=== PATIENT | female | born 1950 | race American Indian/Alaskan Native ===

== ENCOUNTER 2019-08-06 15:16 | Inpatient (IN) | payer MEDICARE, MEDICAID ==
--- NOTE | 2019-08-06 18:46 | History and Physical Report ---
History of Present Illness Date of examination: 08/06/19 Date of admission: 08/06/19 17:24 Chief complaint: Decreased responsiveness and urinary tract infection History of present illness: 68 yo female admitted to the [facility] psych unit and being treated for c atatonic schizophrenia. Patient has hyperlipidemia and schizophrenia. Patient continued to be catatonic since 07/28/2019. Patient with decreased responsiveness. Afebrile. Dysuria present. No fever. Past History Past Medical History: hyperlipidemia, other (hypercholesterolaemia,tachycardia, bipolar, anxiety, depression) Past Surgical History: cholecystectomy Social history: full code Family history: other (Unknown) Medications and Allergies Allergies Allergy/AdvReac Type Severity Reaction Status Date / Time acetaminophen [From Tylenol] Allergy Hives Verified 07/28/19 03:01 Home Medications Medication Instructions Recorded Confirmed Last Taken Type Propranolol [Inderal] 10 mg PO DAILY 07/28/19 07/28/19 Unknown History Simvastatin 20 mg PO HS 07/28/19 07/28/19 Unknown History Valproic Acid [DepaKENE] 250 mg PO HS 07/28/19 07/28/19 Unknown History chlorproMAZINE [Thorazine] 50 mg PO DAILY 07/28/19 07/28/19 Unknown History clonazePAM [Klonopin] 1 mg PO HS 07/28/19 07/28/19 Unknown History Active Meds: Active Medications Atorvastatin Calcium (Atorvastatin) 10 mg PO QHS [facility]AY Clonazepam (Klonopin) 1 mg PO QHS [facility] Lorazepam (Ativan) 2 mg IM Q6H [facility] Last Admin: 07/28/19 14:45 Dose: 2 mg Documented by: Propranolol HCl (Inderal) 10 mg PO DAILY [facility] Last Admin: 07/28/19 09:38 Dose: Not Given Documented by: Risperidone (Risperdal) 1 mg PO BID [facility] Last Admin: 07/28/19 09:37 Dose: Not Given Documented by: Valproic Acid (Depakene) 250 mg PO [facility] Review of Systems ROS unobtainable: due to mental status Medications and Allergies Allergies Allergy/AdvReac Type Severity Reaction Status Date / Time acetaminophen [From Tylenol] Allergy Hives Verified 07/28/19 03:01 Home Medications Medication Instructions Recorded Confirmed Last Taken Type Propranolol [Inderal] 10 mg PO DAILY 07/28/19 08/06/19 08/06/19 10:00 History Simvastatin 20 mg PO HS 07/28/19 08/06/19 08/05/19 22:00 History ARIPiprazole [Abilify TAB] 10 mg PO QDAY #30 tablet 08/04/19 08/06/19 08/06/19 10:00 Rx LORazepam [Ativan] 1 mg PO QID #60 tablet 08/04/19 08/06/19 Unknown Rx chlorproMAZINE [Thorazine] 50 mg PO HS #30 tablet 08/04/19 08/06/19 08/05/19 22:00 Rx LORazepam [Ativan INJ] 2 mg IM BID #14 vial 08/06/19 08/06/19 08/06/19 10:00 Rx Sertraline [Zoloft] 100 mg PO QDAY #60 tablet 08/06/19 08/06/19 08/06/19 09:00 Rx Exam - Constitutional General appearance: Present: no acute distress, well-nourished - EENT Eyes: Present: PERRL ENT: hearing intact, clear oral mucosa - Neck Neck: Present: supple, normal ROM - Respiratory Respiratory effort: normal Respiratory: bilateral: CTA - Cardiovascular Heart rate: 76 Rhythm: regular (76) Heart Sounds: Present: S1 & S2. Absent: rub, click - Extremities Extremities: no ischemia, pulses intact, pulses symmetrical, No edema Peripheral Pulses: within normal limits - Abdominal General gastrointestinal: Present: soft, non-tender, non-distended, normal bowel sounds Female genitourinary: Present: normal - Rectal Rectal Exam: deferred - Integumentary Integumentary: Present: clear, warm, dry - Musculoskeletal Musculoskeletal: generalized weakness - Psychiatric Psychiatric: intact judgment & insight, depressed, other (catatonic state, unresponsive) - Neurologic Neurologic: CNII-XII intact, moves all extremities - Allied Health Allied health notes reviewed: nursing, case management Results - Labs Labs: Labs on 08/06/2019 from [facility] psych admission Sodium 140 Potassium 3.5 Chloride 101.3 Carbon dioxide 22 Anion gap 20 BUN 25 Creatinine 0.6 estimated GFR more than 60 BUN/creatinine ratio 116 Hemoglobin A1c 5.6 Calcium 9.2 AST 21 ALT 30 Alkaline phosphatase 65 Total protein 6.5 Albumin 3.4 /Globulin ratio 1.1 Triglycerides 155 Cholesterol 149 LDL cholesterol 98 HDL 30 Cholesterol/HDL ratio 4.96 Urine WBC more than 182 Valproic acid 5.0 Assessment and Plan Advance Directives: Yes (full code) Plan of care discussed with patient/family: Yes - Patient Problems (1) Acute encephalopathy Current Visit: Yes Status: Acute Plan to address problem: Secondary to UTI and schizophrenia IV fluids initiated IV ceftriaxone initiated pending urine cultures Psychiatry consulted (2) UTI (urinary tract infection) Current Visit: Yes Status: Acute Qualifiers: Urinary tract infection type: acute cystitis Plan to address problem: IV ceftriaxone initiated (3) Hypokalemia Current Visit: Yes Status: Acute Plan to address problem: Supplemented (4) DVT prophylaxis Current Visit: Yes Status: Acute Plan to address problem: On Lovenox and GI prophylaxis
[2019-08-06] MEDS ORDERED: ACETAMINOPHEN 325 MG TAB PO PRN (19:49)
[2019-08-06] MEDS ORDERED: ONDANSETRON 4 MG/2 ML INJ IV PRN (19:49)
[2019-08-06] MEDS ORDERED: HYDROmorphone 1 MG/1 ML INJ IV PRN (19:50)
[2019-08-06] MEDS ORDERED: SERTRALINE 50 MG TAB PO SCH (20:00)
[2019-08-06] MEDS ORDERED: POTASSIUM CHLORIDE ER 20 MEQ TAB PO ONE (20:33)
[2019-08-06] MEDS: SODIUM CHLORIDE 0.9% 1000 ML 1,000 ML IV SCH (21:00)
[2019-08-06] MEDS: PROPRANOLOL 10 MG TAB PO SCH (21:05)
[2019-08-06] MEDS: cefTRIAXone/NS 2 GM/100 ML 2 GM/100 ML BAG IV SCH (21:05)
[2019-08-06] MEDS: ENOXAPARIN 40 MG/0.4 ML INJ SUB-Q SCH (21:19)
[2019-08-06] MEDS: PRAVASTATIN 40 MG TAB PO SCH (21:19)
[2019-08-06] MEDS: FAMOTIDINE 20 MG TAB PO SCH (21:19)
[2019-08-06] MEDS: chlorproMAZINE 25 MG TAB PO SCH (21:20)
[2019-08-06 21:34] LABS: Basophils # (Auto) 0.1 K/mm3 (0.0-0.1); Basophils % (Auto) 0.6 % (0.0-1.8); Eosinophils # (Auto) 0.2 K/mm3 (0.0-0.4); Hemoglobin 14.2 gm/dl (10.1-14.3); Lymphocytes # (Auto) 3.9 K/mm3 (1.2-5.4); Lymphocytes % (Auto) 25.1 % (13.4-35.0); Mean Corpuscular HGB Conc 34 % (30-34); Mean Corpuscular Volume 90 fl (79-97); Monocytes # (Auto) 1.5 K/mm3 (0.0-0.8); Monocytes % (Auto) 9.8 % (0.0-7.3); Platelet Count 237 K/mm3 (140-440); Red Blood Count 4.67 M/mm3 (3.65-5.03); Red Cell Distribution Width 13.5 % (13.2-15.2)
[2019-08-06 21:48] LABS: Alanine Aminotransferase 28 units/L (7-56); Albumin 3.6 g/dL (3.9-5); BUN/Creatinine Ratio 28; Blood Urea Nitrogen 17 mg/dL (7-17); Calcium 9.6 mg/dL (8.4-10.2); Hemolysis Index 11
[2019-08-06] MEDS: LORazepam 2 MG/ML VIAL IV SCH (21:54)
[2019-08-06] MEDS ORDERED: LORazepam 2 MG/ML VIAL IM SCH (22:00)
[2019-08-06] MEDS ORDERED: LORazepam 1 MG TAB PO SCH (22:00)
[2019-08-06] MEDS ORDERED: NON-FORMULARY EACH (Simvastatin 20 MG) PO SCH (22:00)
[2019-08-06 23:05] LABS: Bacteria,Urine 2+ /HPF (Negative); Bilirubin,Urine NEG (Negative); Blood,Urine LG (Negative); Color,Urine Yellow (Yellow); Mucus,Urine FEW /HPF; Urobilinogen,Urine < 2.0 mg/dL (<2.0)
[2019-08-06 23:15] LABS: WBC,Urine > 182.0 /HPF (0.0-6.0)
[2019-08-07] MEDS: LORazepam 2 MG/ML VIAL IV SCH (04:23)
[2019-08-07] MEDS: SODIUM CHLORIDE 0.9% 1000 ML 1,000 ML IV SCH (06:19)
[2019-08-07] MEDS: ARIPiprazole 10 MG TAB PO SCH ×2 (09:45→15:03)
[2019-08-07] MEDS: FAMOTIDINE 20 MG TAB PO SCH ×2 (09:45→21:42)
[2019-08-07] MEDS: PROPRANOLOL 10 MG TAB PO SCH (09:45)
[2019-08-07] MEDS: cefTRIAXone/NS 2 GM/100 ML 2 GM/100 ML BAG IV SCH (09:46)
[2019-08-07] MEDS: SERTRALINE 100 MG TAB PO SCH (09:47)
[2019-08-07] MEDS ORDERED: FLU VACC QUAD 2019-20 (3 YR UP)/PF 60 MCG/0.5 ML SYRINGE IM ONE (12:00)
[2019-08-07] MEDS ORDERED: LORazepam 2 MG/ML VIAL IV PRN ×2 (12:36→13:19)
--- NOTE | 2019-08-07 13:20 | Progress Note ---
Assessment and Plan / Acute encephalopathy Secondary to UTI and catatonic schizophrenia IV fluids initiated IV ceftriaxone initiated pending urine cultures Psychiatry consulted, cont her psych meds and ativan at bedside / UTI (urinary tract infection) with SIRS IV ceftriaxone initiated - follow cx / Hypokalemia Supplemented / DVT prophylaxis On Lovenox and GI prophylaxis Subjective Date of service: 08/07/19 Interval history: Patient seen and examined Appears catatonic - does not speak or open her eyes Discussed with family at bedside Objective - Constitutional Vitals: Vital Signs - 12hr 08/07/19 08/07/19 08/07/19 01:48 07:50 08:43 Temperature 98.6 F 98.7 F Pulse Rate 96 H 91 H 90 Pulse Rate [ Right Radial] Respiratory 24 18 48 H Rate Blood Pressure 137/66 119/63 114/62 O2 Sat by Pulse 96 94 98 Oximetry 08/07/19 08/07/19 08/07/19 09:44 09:45 10:00 Temperature Pulse Rate 87 Pulse Rate [ 84 Right Radial] Respiratory Rate Blood Pressure 114/62 O2 Sat by Pulse 93 98 Oximetry General appearance: Present: obese, other (appears asleep w/o any discomfort, does not open eyes, ) - EENT Eyes: no scleral icterus ENT: clear oral mucosa, dentition normal Ears: bilateral: normal - Neck Neck: supple, no masses or JVD - Respiratory Respiratory effort: normal Respiratory: bilateral: CTA - Breasts Breasts: normal - Cardiovascular Rhythm: regular Heart Sounds: Present: S1 & S2. Absent: gallop, rub Extremities: pulses intact, No edema, normal color, Full ROM - Gastrointestinal General gastrointestinal: Present: soft, non-tender, non-distended, normal bowel sounds - Integumentary Integumentary: clear, warm, dry - Musculoskeletal Musculoskeletal: generalized weakness - Neurologic Neurologic: other (unable to reflex) - Psychiatric Psychiatric: other (non communicative) - Labs CBC & Chem 7: 08/06/19 20:28 08/08/19 03:31 Labs: Abnormal lab results 08/06/19 08/06/19 08/06/19 Range/Units 20:28 20:28 22:00 WBC 15.6 H (4.5-11.0) K/mm3 Ponce % (Auto) 9.8 H (0.0-7.3) % Ponce # 1.5 H (0.0-0.8) K/mm3 Seg Neutrophils # 9.9 H (1.8-7.7) K/mm3 Potassium 3.1 L (3.6-5.0) mmol/L Creatinine 0.6 L (0.7-1.2) mg/dL Glucose 118 H (65-100) mg/dL Albumin 3.6 L (3.9-5) g/dL Urine WBC (Auto) > 182.0 H (0.0-6.0) /HPF
[2019-08-07] MEDS: D5W/0.45% NACL/KCL 20 MEQ 20 MEQ/1,000 ML BAG IV SCH (14:58)
[2019-08-07] MEDS ORDERED: SERTRALINE 100 MG TAB PO ONE (15:30)
[2019-08-07] MEDS: chlorproMAZINE 25 MG TAB PO SCH (21:41)
[2019-08-07] MEDS: LORazepam 2 MG TAB PO SCH (21:41)
[2019-08-07] MEDS: ENOXAPARIN 40 MG/0.4 ML INJ SUB-Q SCH (21:42)
[2019-08-07] MEDS: PRAVASTATIN 40 MG TAB PO SCH (21:42)
[2019-08-07] MEDS ORDERED: LORazepam 2 MG/ML VIAL IM SCH (22:00)
[2019-08-08] MEDS: D5W/0.45% NACL/KCL 20 MEQ 20 MEQ/1,000 ML BAG IV SCH ×2 (04:02→17:20)
[2019-08-08 05:10] LABS: BUN/Creatinine Ratio 17; Blood Urea Nitrogen 10 mg/dL (7-17); Calcium 8.5 mg/dL (8.4-10.2); Hemolysis Index 8
[2019-08-08] MEDS: PROPRANOLOL 10 MG TAB PO SCH (09:28)
[2019-08-08] MEDS: cefTRIAXone/NS 2 GM/100 ML 2 GM/100 ML BAG IV SCH (09:28)
[2019-08-08] MEDS: FAMOTIDINE 20 MG TAB PO SCH ×2 (09:29→21:09)
[2019-08-08] MEDS: ARIPiprazole 10 MG TAB PO SCH (09:29)
[2019-08-08] MEDS: SERTRALINE 100 MG TAB PO SCH (09:31)
--- NOTE | 2019-08-08 13:47 | Progress Note ---
Assessment and Plan / Acute encephalopathy, improved Secondary to UTI and catatonic schizophrenia cont IV fluids, IV ceftriaxone pending urine cultures Psychiatry consulted, cont her psych meds and ativan at bedside / UTI (urinary tract infection) with SIRS IV ceftriaxone initiated - follow cx / Hypokalemia Supplemented / DVT prophylaxis On Lovenox and GI prophylaxis Disposition: follow psych eval - pending Subjective Date of service: 08/08/19 Interval history: Patient seen and examined She is much alert and communicating today with few words Discussed with family at bedside Objective - Exam Narrative Exam: General appearance: Present: obese, NAD - EENT Eyes: no scleral icterus ENT: clear oral mucosa, dentition normal Ears: bilateral: normal - Neck Neck: supple, no masses or JVD - Respiratory Respiratory effort: normal Respiratory: bilateral: CTA - Breasts Breasts: normal - Cardiovascular Rhythm: regular Heart Sounds: Present: S1 & S2. Absent: gallop, rub Extremities: pulses intact, No edema, normal color, Full ROM - Gastrointestinal General gastrointestinal: Present: soft, non-tender, non-distended, normal bowel sounds - Integumentary Integumentary: clear, warm, dry - Musculoskeletal Musculoskeletal: generalized weakness - Neurologic Neurologic: no focal deficit - Psychiatric Psychiatric: flat affect, cooperative - Constitutional Vitals: Vital Signs - 12hr 08/08/19 08/08/19 08/08/19 02:00 08:04 09:10 Temperature 98.1 F 98.5 F Pulse Rate 106 H 94 H Pulse Rate [ Apical] Respiratory 18 18 Rate Blood Pressure 143/77 117/67 O2 Sat by Pulse 97 97 98 Oximetry 08/08/19 10:00 Temperature Pulse Rate 100 H Pulse Rate [ 100 H Apical] Respiratory Rate Blood Pressure O2 Sat by Pulse 98 Oximetry - Labs CBC & Chem 7: 08/09/19 04:05 08/09/19 04:05 Labs: Abnormal lab results 08/08/19 Range/Units 03:31 Potassium 3.5 L (3.6-5.0) mmol/L Creatinine 0.6 L (0.7-1.2) mg/dL Glucose 110 H (65-100) mg/dL
[2019-08-08] MEDS: ENOXAPARIN 40 MG/0.4 ML INJ SUB-Q SCH (21:09)
[2019-08-08] MEDS: chlorproMAZINE 25 MG TAB PO SCH (21:09)
[2019-08-08] MEDS: PRAVASTATIN 40 MG TAB PO SCH (21:09)
[2019-08-08] MEDS: LORazepam 2 MG TAB PO SCH (21:09)
[2019-08-09 05:15] LABS: Basophils # (Auto) 0.1 K/mm3 (0.0-0.1); Basophils % (Auto) 0.7 % (0.0-1.8); Eosinophils # (Auto) 0.2 K/mm3 (0.0-0.4); Eosinophils % (Auto) 1.7 % (0.0-4.3); Hematocrit 38.9 % (30.3-42.9); Lymphocytes # (Auto) 3.3 K/mm3 (1.2-5.4); Lymphocytes % (Auto) 32.1 % (13.4-35.0); Mean Corpuscular HGB Conc 34 % (30-34); Mean Corpuscular Volume 91 fl (79-97); Monocytes # (Auto) 0.8 K/mm3 (0.0-0.8); Monocytes % (Auto) 8.2 % (0.0-7.3); Platelet Count 198 K/mm3 (140-440); Red Cell Distribution Width 13.9 % (13.2-15.2)
[2019-08-09] MEDS: D5W/0.45% NACL/KCL 20 MEQ 20 MEQ/1,000 ML BAG IV SCH (05:25)
[2019-08-09 05:33] LABS: BUN/Creatinine Ratio 12; Blood Urea Nitrogen 7 mg/dL (7-17); Calcium 8.8 mg/dL (8.4-10.2); Hemolysis Index 44
[2019-08-09] MEDS: PROPRANOLOL 10 MG TAB PO SCH (09:34)
[2019-08-09] MEDS: ARIPiprazole 10 MG TAB PO SCH (09:34)
[2019-08-09] MEDS: SERTRALINE 100 MG TAB PO SCH (09:34)
[2019-08-09] MEDS: FAMOTIDINE 20 MG TAB PO SCH (09:34)
[2019-08-09] MEDS: cefTRIAXone/NS 2 GM/100 ML 2 GM/100 ML BAG IV SCH (09:35)
--- NOTE | 2019-08-09 14:18 | Discharge Summary ---
Providers - Providers Date of Admission: 08/06/19 17:24 Date of discharge: 08/09/19 Attending physician: AHSAN KIM 08/06/19 20:36 Consult to Physician [CONS] Routine Comment: Consulting Provider: JONG RIVERA Physician Instructions: Reason For Exam: Catatonic scizophrenia 08/08/19 13:48 Physical Therapy Evaluation and Treat [CONS] Routine Comment: Reason For Exam: placement Primary care physician: POLICY DIRECTOR Hospitalization Hospital course: 68 yo female admitted to the [facility] psych unit and being treated for catatonic schizophrenia. Patient has hyperlipidemia and schizophrenia. Patient continued to be catatonic since 07/28/2019 with decreased responsiveness. UA suggested UTI, started on abx, psych was following. Her mental status then improved with medical Mx. She was then discharged home in stable condition. Discharge diagnosis: / Acute encephalopathy, improved Secondary to UTI and catatonic schizophrenia treated with iv abx and Iv fluid Psychiatry consulted, continued her psych meds and ativan at bedtime / UTI (urinary tract infection) with SIRS IV ceftriaxone initiated - then changed to PO abx before discharge / Hypokalemia, Supplemented / DVT prophylaxis, On Lovenox Disposition: [id number] HOME UNDER HOME [facility] Time spent for discharge: 34 minutes Core Measure Documentation - Palliative Care Palliative Care/ Comfort Measures: Not Applicable - Core Measures Any of the following diagnoses?: none Exam - Physical Exam Narrative exam: General appearance: Present: obese, NAD - EENT Eyes: no scleral icterus ENT: clear oral mucosa, dentition normal Ears: bilateral: normal - Neck Neck: supple, no masses or JVD - Respiratory Respiratory effort: normal Respiratory: bilateral: CTA - Breasts Breasts: normal - Cardiovascular Rhythm: regular Heart Sounds: Present: S1 & S2. Absent: gallop, rub Extremities: pulses intact, No edema, normal color, Full ROM - Gastrointestinal General gastrointestinal: Present: soft, non-tender, non-distended, normal bowel sounds - Integumentary Integumentary: clear, warm, dry - Musculoskeletal Musculoskeletal: generalized weakness - Neurologic Neurologic: no focal deficit - Psychiatric Psychiatric: flat affect, cooperative - Constitutional Vitals: Temp Pulse Resp BP Pulse Ox 98.9 F 93 H 18 157/77 96 08/09/19 07:44 08/09/19 10:00 08/09/19 10:00 08/09/19 09:34 08/09/19 13:14 Plan Activity: advance as tolerated, fall precautions Weight Bearing Status: Weight Bear as Tolerated Diet: low fat Special Instructions: home health RN Follow up with: PRIMARY CARE, [Primary Care Provider] - 7 Days Prescriptions: LORazepam [Ativan] 2 mg PO QHS #7 tablet ARIPiprazole [Abilify TAB] 10 mg PO QDAY #10 tablet Propranolol [Inderal] 10 mg PO DAILY #30 levoFLOXacin [Levaquin TAB] 500 mg PO QDAY #5 tablet Simvastatin 20 mg PO HS #30 chlorproMAZINE [Thorazine] 50 mg PO HS #10 tablet Sertraline [Zoloft] 100 mg PO QDAY #10 tablet
[2019-08-09 17:22] VITALS: BP 146/79
[2019-08-09] MEDS: LORazepam 2 MG TAB PO SCH (18:48)
== END 2019-08-09 19:00 | disposition home health service (06) | DRG 71 ==
LOC: UNDOADMIN 15:16 → 2B-ACE 15:16
PROVIDERS: ADMIT Internal Medicine; ATTEND Internal Medicine
DX: G93.49 Other encephalopathy (principal); N30.00 Acute cystitis without hematuria; R65.10 Systemic inflammatory response syndrome (SIRS) of non-infectious origin without acute organ dysfunction; F20.2 Catatonic schizophrenia; E87.6 Hypokalemia; E78.5 Hyperlipidemia, unspecified; E78.00 Pure hypercholesterolemia, unspecified; Z90.49 Acquired absence of other specified parts of digestive tract; Z88.8 Allergy status to other drugs, medicaments and biological substances
CPT/HCPCS: 36415; 80048; 80053; 81001; 85025; 87086; 90471; 90686; 94760; G0378; A9270-GY; G0008; J0696; J1650; J2060; J7030; Q0161